=== PATIENT | female | born 1985 | race African-American/Black ===

== ENCOUNTER 2021-04-11 04:22 | Emergency (ER) | payer MEDICAID ==
[~2021-04-11] VITALS: Ht 170.2 cm; Wt 87.0 kg
[2021-04-11 04:46] VITALS: BP 122/70
[2021-04-11] MEDS ORDERED: BACITRACIN ZINC OINT UDPKT TOP SCH (06:45)
[2021-04-11] MEDS ORDERED: BACITRACIN 15GM TUBE TOP ONE (06:45)
== END 2021-04-11 06:48 | disposition home or self-care (01) ==
LOC: ER 04:22
DX: S60.454A Superficial foreign body of right ring finger, initial encounter (principal); X58.XXXA Exposure to other specified factors, initial encounter; Y93.9 Activity, unspecified; Y92.9 Unspecified place or not applicable
CPT/HCPCS: 99284